=== PATIENT | female | born 1965 | race Two or more races ===

== ENCOUNTER 2021-09-06 10:16 | Inpatient (IN) | payer OTHER ==
[~2021-09-06] VITALS: Ht 175.3 cm; Wt 132.6 kg
[2021-09-06] MEDS ORDERED: ONDANSETRON HCL 4 MG/2 ML VIAL IV ONE (11:00)
[2021-09-06] MEDS ORDERED: PANTOPRAZOLE 40 MG/10 ML VIAL INJ IV ONE ×2 (11:00→19:15)
[2021-09-06] MEDS ORDERED: SODIUM CHLORIDE 0.9% 1,000 ML IVB ONE (11:00)
[2021-09-06] MEDS ORDERED: MORPHINE SULFATE 4 MG/ML SYR/VIAL IV ONE ×2 (11:00→15:30)
[2021-09-06 11:49] LABS: Urine Bacteria NONE SEEN /hpf (None Seen); Urine Blood Negative /uL (Negative); Urine Mucus FEW (None Seen); Urine Specific Gravity 1.025 (1.001-1.035); Urine WBC 18 /hpf (0 - 5)
[2021-09-06 12:36] LABS: Basophils # (auto) 0 10 ^3/uL (0-0.2); Basophils % (auto) 0.7 % (0.0-2.0); Eosinophils # (auto) 0 10 ^3/uL (0-0.8); Eosinophils % (auto) 0.6 % (0.0-7.0); Hematocrit 44.8 % (36.0-46.0); Hemoglobin 14.8 g/dL (12.2-16.2); Lymphocytes # (auto) 1.2 10 ^3/uL (0.4-5.4); Lymphocytes % (auto) 23.2 % (10.0-50.0); Mean Corpuscular Hemoglobin 27.6 pg (28.0-32.0); Mean Corpuscular Volume 83.7 fL (80.0-100.0); Monocytes # (auto) 0.3 10 ^3/uL (0-1.3); Monocytes % (auto) 5.6 % (0.0-12.0); Neutrophils # (auto) 3.8 10 ^3/uL (1.6-8.6); Neutrophils % (auto) 69.9 % (37.0-80.0); Nucleated Red Blood Cells % 0.1 %; Red Blood Cells 5.35 10^6/uL (4.0-5.20); White Blood Cell 5.4 10^3/uL (4.4-10.8)
[2021-09-06 12:53] LABS: Albumin 3.5 g/dL (3.4-5.0); Calcium 9.5 mg/dL (8.5-10.1); Potassium 3.4 mmol/L (3.5-5.1)
[2021-09-06 12:56] LABS: BUN/Creatinine Ratio 10.8; Bilirubin, Total 0.4 mg/dL (0.2-1.0); Total Protein 8.5 g/dL (6.4-8.2)
[2021-09-06 13:30] LABS: Amylase 71 U/L (25-115); Lipase 91 U/L (73-393)
[2021-09-06] MEDS ORDERED: ASPirin 81 mg TAB PO ONE (13:45)
[2021-09-06] MEDS ORDERED: cefTRIAXone 1GM/50ML D5W 50 ML IV ONE (13:45)
[2021-09-06] MEDS ORDERED: cloNIDine HCL 0.1 MG TAB PO ONE (14:30)
[2021-09-06] MEDS ORDERED: NITROGLYCERIN 0.4 MG SL TAB SL PRN (15:15)
[2021-09-06] MEDS ORDERED: MORPHINE SULFATE INJECTION 2 MG/ML SYRG IV PRN (15:15)
[2021-09-06] MEDS ORDERED: ENOXAPARIN SOD 40 MG/0.4 ML SYRINGE SC ONE (19:00)
[2021-09-06] MEDS ORDERED: MULTIPLE VITAMINS W/ MINERALS TAB PO ONE (19:15)
[2021-09-06] MEDS ORDERED: HYDROcodone-ACET 5/325MG TAB PO PRN (19:15)
[2021-09-06] MEDS ORDERED: BENAZEPRIL HCL 10 MG TAB PO ONE (19:15)
[2021-09-06] MEDS ORDERED: FOLIC ACID 1 MG TAB PO ONE (19:15)
[2021-09-06] MEDS ORDERED: LORazepam 2MG/ML-1ML VIAL IV PRN (19:15)
[2021-09-06] MEDS ORDERED: LORazepam 0.5 MG TAB PO PRN (19:15)
[2021-09-06] MEDS ORDERED: SODIUM CHLORIDE 0.9% 1,000 ML IV SCH (19:15)
[2021-09-06] MEDS ORDERED: METOPROLOL SUCCINATE XL 50 MG TAB PO ONE (19:15)
[2021-09-06] MEDS ORDERED: DOCUSATE SOD 100 MG CAP PO PRN (19:15)
[2021-09-06] MEDS ORDERED: hydrALAZINE HCL 20 MG/ML VL IV PRN (19:15)
[2021-09-06] MEDS ORDERED: ONDANSETRON HCL 4 MG/2 ML VIAL IV PRN (19:15)
[2021-09-06] MEDS ORDERED: IOHEXOL 350 MG/ML 100ML IJ ONE (19:17)
[2021-09-06 20:54] LABS: Magnesium 2.3 mg/dL (1.6-2.6); Phosphorus 3.3 mg/dL (2.5-4.90)
[2021-09-06] MEDS ORDERED: ATORVASTATIN 20 MG TAB PO SCH (22:00)
[2021-09-06] MEDS: POTASSIUM CHL 20 Meq TABLET PO SCH (22:13)
[2021-09-07] VITALS (7 sets, daily range): BP systolic 98–150; BP diastolic 50–95
[2021-09-07] MEDS ORDERED: ACET-1158 PO (00:53)
[2021-09-07] MEDS ORDERED: ASPI325T4 PO (00:53)
[2021-09-07] MEDS ORDERED: PNEUMOCOCCAL VACC POLYS 25 MCG/0.5 ML VIAL IM ONE (01:00)
[2021-09-07 02:58] LABS: INR 1.14 (0.9-1.15); Partial Thromboplastin Time 28.6 sec (23.6-33.0)
[2021-09-07 05:37] LABS: Basophils # (auto) 0 10 ^3/uL (0-0.2); Basophils % (auto) 0.7 % (0.0-2.0); Eosinophils # (auto) 0.1 10 ^3/uL (0-0.8); Eosinophils % (auto) 2.5 % (0.0-7.0); Hematocrit 36.8 % (36.0-46.0); Hemoglobin 12.5 g/dL (12.2-16.2); Lymphocytes # (auto) 1.6 10 ^3/uL (0.4-5.4); Lymphocytes % (auto) 34.2 % (10.0-50.0); Mean Corpuscular Hemoglobin 28.2 pg (28.0-32.0); Mean Corpuscular Hgb Conc. 33.9 g/dL (32.0-36.0); Mean Corpuscular Volume 83.3 fL (80.0-100.0); Monocytes # (auto) 0.4 10 ^3/uL (0-1.3); Monocytes % (auto) 9.3 % (0.0-12.0); Neutrophils # (auto) 2.4 10 ^3/uL (1.6-8.6); Neutrophils % (auto) 53.3 % (37.0-80.0); Nucleated Red Blood Cells % 0.1 %; Red Blood Cells 4.41 10^6/uL (4.0-5.20); Red Cell Distribution Width 16.2 % (11.8-14.3); White Blood Cell 4.6 10^3/uL (4.4-10.8)
[2021-09-07 05:50] LABS: Potassium 3.4 mmol/L (3.5-5.1)
[2021-09-07 05:52] LABS: INR 1.13 (0.9-1.15); Partial Thromboplastin Time 28.6 sec (23.6-33.0)
[2021-09-07 06:02] LABS: Albumin 2.7 g/dL (3.4-5.0); BUN/Creatinine Ratio 14.7; Bilirubin, Total 0.4 mg/dL (0.2-1.0); CRP High Sensitivity 0.55 mg/dL (< 0.3); Calcium 8.6 mg/dL (8.5-10.1); Magnesium 2.2 mg/dL (1.6-2.6); Phosphorus 3.7 mg/dL (2.5-4.90); Total Protein 6.5 g/dL (6.4-8.2); Uric Acid 7.3 mg/dL (2.6-6.0)
[2021-09-07 06:08] LABS: Urine Bacteria FEW /hpf (None Seen); Urine Blood Negative /uL (Negative); Urine Mucus FEW (None Seen); Urine WBC 7 /hpf (0 - 5)
[2021-09-07 06:12] LABS: Urine Specific Gravity > 1.050 (1.001-1.035)
[2021-09-07 06:18] LABS: Alcohol, Urine < 3.0 mg/dL (0-10); Amphetamine Screen, Urine NEGATIVE (NEGATIVE); Barbiturate Scree,Urine NEGATIVE (NEGATIVE); Benzodiazephine Screen, Urine NEGATIVE (NEGATIVE); Cannabinoid Screen, Urine NEGATIVE (NEGATIVE); Cocaine Screen, Urine NEGATIVE (NEGATIVE); Opiate Scree,Urine POSITIVE (NEGATIVE); Phencyclidine Screen, Urine NEGATIVE (NEGATIVE); Protein, Urine 28.5 mg/dL (0.0-11.9)
[2021-09-07] MEDS ORDERED: SUCRALFATE 1 GM/10 ML ORAL SUSP PO SCH (07:00)
[2021-09-07] MEDS ORDERED: PANTOPRAZOLE 40 MG/10 ML VIAL INJ IV SCH (10:00)
[2021-09-07] MEDS ORDERED: HCTZ 25 MG TAB PO SCH (10:00)
[2021-09-07] MEDS ORDERED: POTASSIUM CHL 20 Meq TABLET PO ONE (10:00)
[2021-09-07] MEDS ORDERED: METOPROLOL SUCCINATE XL 50 MG TAB PO SCH (10:00)
[2021-09-07] MEDS ORDERED: ASPirin 81 mg TAB PO SCH (10:00)
[2021-09-07] MEDS: cefTRIAXone 1GM/50ML D5W 50 ML IV SCH (10:21)
[2021-09-07] MEDS: FOLIC ACID 1 MG TAB PO SCH (10:22)
[2021-09-07] MEDS: THIAMINE HCL 100 MG TAB PO SCH (10:23)
[2021-09-07] MEDS: ENOXAPARIN SOD 40 MG/0.4 ML SYRINGE SC SCH (10:25)
[2021-09-07] MEDS: MULTIPLE VITAMINS W/ MINERALS TAB PO SCH (10:25)
[2021-09-07] MEDS: POTASSIUM CHL 20 Meq TABLET PO SCH (10:25)
[2021-09-07] MEDS: BENAZEPRIL HCL 10 MG TAB PO SCH (10:26)
[2021-09-07] MEDS: SUCRALFATE 1 GM/10 ML ORAL SUSP PO SCH ×3 (15:45→22:05)
[2021-09-07] MEDS: PANTOPRAZOLE 40 MG/10 ML VIAL INJ IV SCH (22:05)
[2021-09-08 05:00] VITALS: BP 118/61
[2021-09-08] MEDS: SUCRALFATE 1 GM/10 ML ORAL SUSP PO SCH ×4 (06:36→22:29)
[2021-09-08 08:55] VITALS: BP 110/55
[2021-09-08] MEDS: cefTRIAXone 1GM/50ML D5W 50 ML IV SCH (09:38)
[2021-09-08] MEDS: MULTIPLE VITAMINS W/ MINERALS TAB PO SCH (09:38)
[2021-09-08] MEDS: ENOXAPARIN SOD 40 MG/0.4 ML SYRINGE SC SCH (09:38)
[2021-09-08] MEDS: FOLIC ACID 1 MG TAB PO SCH (09:38)
[2021-09-08] MEDS: BENAZEPRIL HCL 10 MG TAB PO SCH (09:38)
[2021-09-08] MEDS: THIAMINE HCL 100 MG TAB PO SCH (09:38)
[2021-09-08] MEDS: PANTOPRAZOLE 40 MG/10 ML VIAL INJ IV SCH ×2 (09:38→22:31)
[2021-09-08 13:03] VITALS: BP 122/62
[2021-09-08 16:54] VITALS: BP 165/87
[2021-09-08 22:00] VITALS: BP 114/92
[2021-09-09 05:00] VITALS: BP 140/90
[2021-09-09 05:47] LABS: Hematocrit 36.6 % (36.0-46.0); Hemoglobin 12.8 g/dL (12.2-16.2)
[2021-09-09 05:58] LABS: Potassium 3.7 mmol/L (3.5-5.1)
[2021-09-09] MEDS: SUCRALFATE 1 GM/10 ML ORAL SUSP PO SCH ×2 (06:00→12:32)
[2021-09-09 06:02] LABS: Magnesium 2.3 mg/dL (1.6-2.6)
[2021-09-09 08:00] VITALS: BP 142/80
[2021-09-09] MEDS ORDERED: LIDOCAINE VISCOUS 2% 15ML UD ONE (08:46)
[2021-09-09] MEDS ORDERED: SODIUM CHLORIDE LOCK 10 ML ONE (08:46)
[2021-09-09] MEDS ORDERED: diphenhdrAMINE HCL 50 MG/1 ML VL ONE (08:47)
[2021-09-09] MEDS: MIDAZOLAM HCL 5 MG/ML-1ML VIAL ONE ×2 (09:10→09:13)
[2021-09-09] MEDS: fentaNYL CITRATE 100 MCG/2 ML VL ONE ×2 (09:10→09:13)
[2021-09-09] MEDS ORDERED: PANTOPRAZOLE 40 MG TAB PO SCH (10:00)
[2021-09-09] MEDS: THIAMINE HCL 100 MG TAB PO SCH (10:02)
[2021-09-09] MEDS: MULTIPLE VITAMINS W/ MINERALS TAB PO SCH (10:02)
[2021-09-09] MEDS: FOLIC ACID 1 MG TAB PO SCH (10:03)
[2021-09-09] MEDS: BENAZEPRIL HCL 10 MG TAB PO SCH (10:03)
[2021-09-09] MEDS: ENOXAPARIN SOD 40 MG/0.4 ML SYRINGE SC SCH (10:03)
[2021-09-09] MEDS ORDERED: PANT40TA2 PO (11:41)
[2021-09-09] MEDS ORDERED: LISI20TA28 PO (11:41)
[2021-09-09] MEDS ORDERED: SUCR1TAB22 PO (11:41)
[2021-09-09 12:00] VITALS: BP 130/76
[2021-09-09 14:31] VITALS: BP 130/76
== END 2021-09-09 15:05 | disposition home or self-care (01) | DRG 241 ==
LOC: ER 10:16 → TELE 15:06 → TELE-EAST 20:29
PROVIDERS: ADMIT Hospitalist; ATTEND Internal Medicine
PROC: 0DB68ZX Excision of Stomach, Via Natural or Artificial Opening Endoscopic, Diagnostic (ICD-10-PCS; principal; 2021-09-09 09:10)
DX: K29.80 Duodenitis without bleeding (principal); I50.33 Acute on chronic diastolic (congestive) heart failure; I21.A1 Myocardial infarction type 2; K81.0 Acute cholecystitis; K29.20 Alcoholic gastritis without bleeding; K21.00 Gastro-esophageal reflux disease with esophagitis, without bleeding; I24.9 Acute ischemic heart disease, unspecified; E07.9 Disorder of thyroid, unspecified; N39.0 Urinary tract infection, site not specified; E66.01 Morbid (severe) obesity due to excess calories; E78.5 Hyperlipidemia, unspecified; E87.6 Hypokalemia; I16.9 Hypertensive crisis, unspecified; K21.9 Gastro-esophageal reflux disease without esophagitis; K44.9 Diaphragmatic hernia without obstruction or gangrene; I11.0 Hypertensive heart disease with heart failure; Z20.822 Contact with and (suspected) exposure to COVID-19; Z68.41 Body mass index [BMI] 40.0-44.9, adult
CPT/HCPCS: 36415; 71275; 76705; 80053; 80061; 80307; 81001; 82150; 82550; 82728; 83036; 83615; 83690; 83735; 83880; 84100; 84132; 84156; 84443; 84484; 84550; 85014; 85018; 85025; 85379; 85610; 85652; 85730; 86141; 87040; 87086; 93005; 93306; 93970; 96361; 96374; 96375; C9113; G0378; J0696; J2250; J2405

== ENCOUNTER 2022-06-17 11:10 | Emergency (ER) | payer MEDICAID, OTHER ==
[~2022-06-17] VITALS: Ht 172.7 cm; Wt 136.5 kg
[~2022-06-17 11:10] MED LIST: ACET-1158 PO; LISI20TA28 PO; PANT40TA2 PO; SUCR1TAB22 PO
[2022-06-17 13:21] VITALS: BP 164/89
[2022-06-17] MEDS ORDERED: GABA300C10 PO (13:54)
[2022-06-17] MEDS ORDERED: IBUP800T27 PO (13:54)
[2022-06-17] MEDS ORDERED: HYDROcodone-ACET 5/325MG TAB PO ONE (14:00)
== END 2022-06-17 14:00 | disposition home or self-care (01) ==
LOC: ER 11:10
DX: G89.29 Other chronic pain (principal); M54.50 Low back pain, unspecified; M54.16 Radiculopathy, lumbar region; I10 Essential (primary) hypertension; E78.5 Hyperlipidemia, unspecified; Z79.1 Long term (current) use of non-steroidal anti-inflammatories (NSAID); Z79.899 Other long term (current) drug therapy
CPT/HCPCS: 93971

== ENCOUNTER 2024-09-24 19:04 | Emergency (ER) | payer MEDICAID ==
[~2024-09-24] VITALS: Ht 172.7 cm; Wt 135.0 kg
[~2024-09-24 19:04] MED LIST changes: -ACET-1158 PO; +ACET500T58 PO; +GABA-1250 PO; +IBUP-1456 PO; -LISI20TA28 PO; +LISI20TA56 PO; -SUCR1TAB22 PO; +SUCR1TAB31 PO
--- NOTE | 2024-09-24 19:41 | ED.PDOC ---
History of Present Illness HPI Comments 58-year-old, morbidly obese female, with a history of hypertension, presents from [facility] for HTN. Patient reports on being found hypertensive, with a systolic pressure in the 200's, at said facility when being evaluated for a TB test, earlier, this evening. She endorses on being without her Lisinopril medication since losing her insurance until recently. Patient states on having palpitations and feeling lightheaded minutes prior to being sent over to ED. She denies having any chest pain, shortness of breath, dizziness, vision or speech changes, or further associated symptoms. Upon arrival to ED, patient had a blood pressure of 167/98 after reporting on be ing given 0.2mg of Clonidine by urgent care staff. Chief Complaint: High Blood Pressure Time Seen by MD: 19:30 Primary Care Provider: MICHELLE Reviewed Notes: Nurses Notes, Medications, Allergies Allergies: Coded Allergies: NO KNOWN ALLERGIES (Unverified , 09/06/21) Home Meds Active Scripts Gabapentin (Gabapentin) 300 Mg Cap, 1 CAP PO TID, #30 CAP 1 Refill Prov:ROMANA PITT 06/17/22 Ibuprofen (Ibuprofen) 800 Mg Tab, 1 TAB PO TID, #30 TAB Prov:ROMANA PITT 06/17/22 Lisinopril (Lisinopril) 20 Mg Tab, 1 TAB PO DAILY, #30 TAB Prov:NORBERTO ACOSTA MD 09/09/21 Sucralfate (CARAFATE) 1 Gm Tab, 1 GM PO QIDACHS for 30 Days, #120 TAB Prov:NORBERTO ACOSTA MD 09/09/21 Pantoprazole Sodium Sesquihydr (Protonix) 40 Mg Tab, 40 MG PO BID for 30 Days, #60 TAB Prov:NORBERTO ACOSTA MD 09/09/21 Reported Medications Acetaminophen (Acetaminophen) 500 Mg Tab, 500 MG PO PRN, TAB 09/07/21 Information Source: Patient Mode of Arrival: Wheelchair Severity: Moderate Timing: Minutes Duration: Since onset Prehospital treatment: Treatment Past Medical History PAST MEDICAL HISTORY: High Lipids, HTN 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 History Family History Family History: Family hx of DM Social History Smoker: Non-Smoker Alcohol: Occasionally Drugs: Denies Drug Use Lives In: Home All Other Systems: Reviewed and Negative (Comprehensive systems review obtained and negative except for what is stated in the HPI.) Physical Exam General Appearance: No Apparent Distress, Obese HEENT: Normal ENT Inspection, Pharynx Normal, TMs Normal Neck: Full Range of Motion, Non-Tender, Normal, Normal Inspection Respiratory: Chest Non-Tender, Lungs Clear, No Accessory Muscle Use, No Respiratory Distress, Normal Breath Sounds Cardiovascular: No Edema, No JVD, No Murmur, No Gallop, Normal Peripheral Pulses, Regular Rate/Rhythm Breast Exam: Deferred Gastrointestinal: No Organomegaly, Non Tender, No Pulsatile Mass, Normal Bowel Sounds, Soft Genitalia: Deferred Pelvic: Deferred Rectal: Deferred Extremities: No calf tenderness, Normal capillary refill, Normal inspection, Normal range of motion, Non-tender, No pedal edema Musculoskeletal : Apperance: Normal 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 Was a procedure done?: No Differential Dx Considerations may include: HTN emergency, HTN essential, medication noncompliance, among others X-Ray, Labs, Meds, VS Vital Signs Date Time Temp Pulse Resp B/P (MAP) Pulse Ox O2 Delivery O2 Flow Rate FiO2 09/24/24 19:15 97.7 77 20 167/98 (121) 96 97.7 Lab Test 09/24/24 19:55 Range/Units White Blood Count 5.6 4.4-10.8 10^3/uL Red Blood Count 4.96 4.0-5.20 10^6/uL Hemoglobin 13.9 12.2-16.2 g/dL Hematocrit 42.8 36.0-46.0 % Mean Corpuscular Volume 86.2 80.0-100.0 fL Mean Corpuscular Hemoglobin 28.1 28.0-32.0 pg Mean Corpuscular Hemoglobin Concent 32.5 32.0-36.0 g/dL Red Cell Distribution Width 16.9 H 11.8-14.3 % Platelet Count 234 140-450 10^3/uL Mean Platelet Volume 8.8 6.9-10.8 fL Neutrophils (%) (Auto) 59.3 37.0-80.0 % Lymphocytes (%) (Auto) 30.0 10.0-50.0 % Monocytes (%) (Auto) 8.2 0.0-12.0 % Eosinophils (%) (Auto) 2.2 0.0-7.0 % Basophils (%) (Auto) 0.3 0.0-2.0 % Neutrophils # (Auto) 3.3 1.6-8.6 10 ^3/uL Lymphocytes # (Auto) 1.7 0.4-5.4 10 ^3/uL Monocytes # (Auto) 0.5 0-1.3 10 ^3/uL Eosinophils # (Auto) 0.1 0-0.8 10 ^3/uL Basophils # (Auto) 0 0-0.2 10 ^3/uL Nucleated Red Blood Cells 0.1 % Sodium Level 140 136-145 mmol/L Potassium Level 4.2 3.5-5.1 mmol/L Chloride Level 108 H 98-107 mmol/L Carbon Dioxide Level 25 20-31 mmol/L Anion Gap 7 5-15 Blood Urea Nitrogen 17 9-23 mg/dL Creatinine 0.92 0.550-1.02 mg/dL Glomerular Filtration Rate Calc 71 >90 mL/min BUN/Creatinine Ratio 18.5 10.0-20.0 Serum Glucose 92 74-106 mg/dL Calcium Level 10.0 8.7-10.4 mg/dL Troponin I High Sensitivity 33 </=34 ng/L Time of 1ST Reevaluation: 20:00 Reevaluation 1ST: Unchanged Patient Education/Counseling: Diagnosis, Treatment, Need For Follow Up Family Education/Counseling: No Family Present Additional Information Previous visits reviewed: June 17, 2022 and September 06, 2021 encounters for chronic lower back pain and chest pain, respectively The following tests were ordered, and results were reviewed by me: troponin, CBC, BMP Additional Information was gathered from interviewing the following independent historians: N/A I reviewed and agreed with the following test results read by other providers: N/A I discussed treatment and results with medical personnel and: patient Departure 1 Departure Time of Disposition: 20:48 (Patient with asymptomatic hypertension likely secondary to running out of her medication.) Impression: Primary Impression: Essential hypertension Disposition: 01 HOME / SELF CARE / HOMELESS Condition: Stable Additional Instructions: Your workup today was benign. We refilled your medication. Please follow up with the regular doctor within 1 week. e-Prescriptions Lisinopril (Lisinopril) 20 Mg Tab 1 TAB PO DAILY for 30 Days, #30 TAB 5 Refills Prov: GUADALUPE BENNETT MD 09/24/24 Discharged With: Self Critical Care Note Critical Care Time?: No Stability Stability form required: No Heart Score Heart Score: Heart Score Response (Comments) Value History N/A 0 EKG N/A 0 Age N/A 0 Risk Factors N/A 0 Troponin N/A 0 Total 0 I personally scribed for GUADALUPE BENNETT MD ([email or web address]) on 09/24/24 at 19:41. Electronically submitted by Linus Troncoso ([email or web address]). GUADALUPE BENNETT MD Sep 24, 2024 19:41
[2024-09-24 20:05] LABS: Basophils # (auto) 0 10 ^3/uL (0-0.2); Basophils % (auto) 0.3 % (0.0-2.0); Eosinophils # (auto) 0.1 10 ^3/uL (0-0.8); Eosinophils % (auto) 2.2 % (0.0-7.0); Hematocrit 42.8 % (36.0-46.0); Hemoglobin 13.9 g/dL (12.2-16.2); Lymphocytes # (auto) 1.7 10 ^3/uL (0.4-5.4); Mean Corpuscular Hemoglobin 28.1 pg (28.0-32.0); Mean Corpuscular Hgb Conc. 32.5 g/dL (32.0-36.0); Mean Corpuscular Volume 86.2 fL (80.0-100.0); Monocytes # (auto) 0.5 10 ^3/uL (0-1.3); Monocytes % (auto) 8.2 % (0.0-12.0); Neutrophils # (auto) 3.3 10 ^3/uL (1.6-8.6); Neutrophils % (auto) 59.3 % (37.0-80.0); Nucleated Red Blood Cells % 0.1 %; Platelet Count (auto) 234 10^3/uL (140-450); Red Blood Cells 4.96 10^6/uL (4.0-5.20); Red Cell Distribution Width 16.9 % (11.8-14.3); White Blood Cell 5.6 10^3/uL (4.4-10.8)
[2024-09-24 20:22] LABS: Potassium 4.2 mmol/L (3.5-5.1); Sodium 140 mmol/L (136-145)
[2024-09-24 20:23] LABS: Anion Gap 7 (5-15); Carbon Dioxide 25 mmol/L (20-31); Chloride 108 mmol/L (98-107)
[2024-09-24 20:28] LABS: BUN/Creatinine Ratio 18.5 (10.0-20.0); Blood Urea Nitrogen 17 mg/dL (9-23); Glucose 92 mg/dL (74-106)
[2024-09-24] MEDS ORDERED: LISI20TA56 PO (20:50)
[2024-09-24 22:15] VITALS: BP 168/102; PULSE 74; RESP 18; TEMP 98; O2SAT 97
[2024-09-24] MEDS: LISINOPRIL 5 MG TAB PO ONE (22:18)
== END 2024-09-24 22:51 | disposition home or self-care (01) ==
LOC: ER 19:04
DX: I10 Essential (primary) hypertension (principal); E78.5 Hyperlipidemia, unspecified; E66.01 Morbid (severe) obesity due to excess calories; Z79.1 Long term (current) use of non-steroidal anti-inflammatories (NSAID); Z79.899 Other long term (current) drug therapy; Z98.890 Other specified postprocedural states
CPT/HCPCS: 36415; 80048; 84484; 85025